=== PATIENT | male | born 1970 | race Caucasian/White ===

== ENCOUNTER → 2023-01-07 | Outpatient (CLI) | payer OTHER ==
[2023-01-07 15:06] LABS: African American GFR (CKD) >90 (>60 ml/min/1.73 sqM); Blood Urea Nitrogen 6 mg/dL (9-20); Non-African American GFR(CKD) >90 (>60 ml/min/1.73 sqM)
--- NOTE | 2023-01-07 16:56 | CT ---
EXAMINATION TYPE: CT ChestAbdPelvis w con CT DLP: 619.3 mGycm, Automated exposure control for dose reduction was used. DATE OF EXAM: 01/07/2023 4:24 PM COMPARISON: CT abdomen pelvis 10/20/2022, CT chest abdomen pelvis 08/20/2022. CLINICAL INDICATION:Male, 52 years old with history of C18.5; PHH, colon CA, f/u Technique: Multiple axial images of the chest, abdomen, and pelvis were obtained following the intrav enous administration of 100 mL Isovue-300. Oral contrast was administered. Two-dimensional coronal an d sagittal reconstructions were obtained. Findings: CHEST: LUNGS/ PLEURA: No pleural effusion, pneumothorax or focal consolidation. Stable 2 mm nodule within th e lateral aspect of the right lung apex. No new or enlarging pulmonary nodules. AIRWAY: Patent and unremarkable.. HEART: Size within normal limits. No pericardial effusion. MEDIASTINUM: No gross evidence of adenopathy. VASCULATURE: No aortic aneurysm. Right chest wall Mediport catheter with distal tip terminating at t he superior cavoatrial junction. MUSCULOSKELETAL: No acute osseous abnormalities. No aggressive osseous lesions. SOFT TISSUES/LYMPH NODES: Unremarkable. LOWER NECK: No significant findings. ABDOMEN: ABDOMEN LIVER: Multiple heterogenous hypodense partially calcified lesions within the liver are again demonst rated. These appear marginally decreased in size from prior examination. GALLBLADDER AND BILE DUCTS: Appears surgically absent. PANCREAS: Unremarkable. SPLEEN: Enlarged measuring 16.2 cm in CC dimension. ADRENAL GLANDS: Unremarkable. KIDNEYS AND URETERS: No evidence of hydronephrosis or renal calculus. The kidneys enhance symmetrical ly. PELVIS BLADDER: Under distended with circumferential wall thickening. REPRODUCTIVE: Prostate is enlarged in size measuring 5.6 cm in transverse dimension. This indents upo n the urinary bladder base. Bilateral hydroceles. ABDOMEN & PELVIS STOMACH AND BOWEL: Small hiatal hernia, duodenum is unremarkable. Enteric contrast reaches the transv erse colon. The fat planes around the sigmoid colon and rectum appear intact. No evidence of bowel ob struction. PERITONEUM: No evidence of pneumoperitoneum or free fluid. VASCULATURE: No evidence of aortic aneurysm. MUSCULOSKELETAL: No acute osseous abnormalities. No aggressive osseous lesion. Degenerative disc thompson ges at L4-L5. LYMPH NODES: No gross evidence for lymphadenopathy. SOFT TISSUE/ABDOMINAL WALL: Large anterior abdominal parastomal hernia containing trace amount of flu id or soft tissue nodularity. Large anterior abdominal wall hernia containing loop of transverse colo n redemonstrated. Initial epigastric ventral wall hernia containing small amount of fluid. IMPRESSION: 1. No evidence for metastatic disease within the chest. 2. Multiple metastatic hypodense lesions within the liver with calcification consistent with metasta tic disease. These are marginally decreased in size from prior examination. 3. Large anterior abdominal wall ostomy hernia. No evidence for obstruction. 4. Splenomegaly. 5. Circumferential wall thickening of the urinary bladder which may be due to under distention versu s cystitis. Correlate with urinalysis.
== END | disposition home or self-care (01) ==
LOC: RADCTMAIN 14:27
PROVIDERS: ATTEND Internal Medicine Hematology & Oncology
DX: C18.5 Malignant neoplasm of splenic flexure (principal); K76.9 Liver disease, unspecified; R16.1 Splenomegaly, not elsewhere classified; N32.89 Other specified disorders of bladder
CPT/HCPCS: 82565; 84520; 71260; 74177; 36415; Q9967

== ENCOUNTER → 2023-04-05 | Outpatient (CLI) | payer OTHER ==
[2023-04-05 13:28] LABS: African American GFR (CKD) >90 (>60 ml/min/1.73 sqM); Blood Urea Nitrogen 14 mg/dL (9-20); Non-African American GFR(CKD) >90 (>60 ml/min/1.73 sqM)
--- NOTE | 2023-04-06 07:48 | CT ---
EXAMINATION TYPE: CT ChestAbdPelvis w con CT DLP: 1043.2 mGycm, Automated exposure control for dose reduction was used. DATE OF EXAM: 04/05/2023 3:02 PM COMPARISON: CT chest abdomen and pelvis 01/07/2023, 10/20/2022 CLINICAL INDICATION:Male, 52 years old with history of C18.5 MALIGNANT NEOPLASM OF SPLENIC FLEXURE; P HH, h/o colon CA, f/u Technique: Multiple axial images of the chest, abdomen, and pelvis were obtained following the intrav enous administration of 100 mL Isovue-300. Oral contrast was administered. Two-dimensional coronal an d sagittal reconstructions were obtained. Findings: CHEST: LUNGS/ PLEURA: No pleural effusion, pneumothorax or focal consolidation. Stable 2 mm nodule within th e lateral aspect of the right lung apex. No new or enlarging pulmonary nodules. AIRWAY: Patent and unremarkable.. HEART: Size within normal limits. No pericardial effusion. MEDIASTINUM: No gross evidence of adenopathy. VASCULATURE: No aortic aneurysm. Right chest wall Mediport catheter with distal tip terminating at t he superior cavoatrial junction. MUSCULOSKELETAL: No acute osseous abnormalities. No aggressive osseous lesions. SOFT TISSUES/LYMPH NODES: Unremarkable. LOWER NECK: No significant findings. ABDOMEN: ABDOMEN LIVER: Multiple heterogenous hypodense partially calcified lesions within the liver are again demonst rated. These are stable from prior examination. No new definitive lesions from prior examination. GALLBLADDER AND BILE DUCTS: Appears surgically absent. PANCREAS: Unremarkable. SPLEEN: Enlarged measuring 16.1 cm in CC dimension. ADRENAL GLANDS: Unremarkable. KIDNEYS AND URETERS: No evidence of hydronephrosis or renal calculus. The kidneys enhance symmetrical ly. Contrast is demonstrated within both collecting systems on the delayed phase. PELVIS BLADDER: Unremarkable REPRODUCTIVE: Prostate is enlarged in size measuring 5.7 cm in transverse dimension. This indents upo n the urinary bladder base. Bilateral hydroceles. ABDOMEN & PELVIS STOMACH AND BOWEL: Small hiatal hernia, duodenum is unremarkable. Enteric contrast reaches the small bowel. The fat planes around the sigmoid colon and rectum appear intact. No evidence of bowel obstruc tion. Moderate amount of stool is present throughout the colon. PERITONEUM: No evidence of pneumoperitoneum or free fluid. Ending within the anterior mesentery likel y related to recent postsurgical change. VASCULATURE: No evidence of aortic aneurysm. MUSCULOSKELETAL: No acute osseous abnormalities. No aggressive osseous lesion. Degenerative disc thompson ges at L4-L5. LYMPH NODES: No gross evidence for lymphadenopathy. SOFT TISSUE/ABDOMINAL WALL: Post surgical change from treatment of previously seen anterior abdominal wall hernia. Trace stranding in this region. Similar epigastric ventral wall hernia containing small amount of fluid. Small bilateral inguinal hernias with right greater than left. These both contain f at with the right containing some trace ascites. IMPRESSION: 1. No evidence for metastatic disease within the chest. 2. Multiple metastatic hypodense lesions within the liver with calcification consistent with metasta tic disease. These are stable from prior exam. No new definitive lesions. 3. Postsurgical changes from abdominal wall hernia repair. 4. Splenomegaly unchanged.
== END | disposition home or self-care (01) ==
LOC: RADCTMAIN 12:58
PROVIDERS: ATTEND Internal Medicine Hematology & Oncology
DX: C78.7 Secondary malignant neoplasm of liver and intrahepatic bile duct (principal); C18.5 Malignant neoplasm of splenic flexure; F32.A Depression, unspecified; R16.1 Splenomegaly, not elsewhere classified; R51.9 Headache, unspecified; Z98.890 Other specified postprocedural states
CPT/HCPCS: 82565; 84520; 71260; 74177; 36415; Q9967

== ENCOUNTER → 2023-10-28 | Outpatient (CLI) | payer OTHER ==
[2023-10-28 12:56] LABS: African American GFR (CKD) >90 (>60 ml/min/1.73 sqM); Blood Urea Nitrogen 8 mg/dL (9-20); Non-African American GFR(CKD) >90 (>60 ml/min/1.73 sqM)
--- NOTE | 2023-10-28 15:16 | CT ---
EXAMINATION TYPE: CT ChestAbdPelvis w con DATE OF EXAM: 10/28/2023 COMPARISON: 04/05/2023 HISTORY: colon cancer CT DLP: 1811 mGycm Automated exposure control for dose reduction was used. CONTRAST: CT scan of the chest, abdomen and pelvis is performed with Oral Contrast and with IV Contrast, patien t injected with 100 mL of Isovue 300. EXAMINATION TYPE: CT ChestAbdPelvis w con DATE OF EXAM: 10/28/2023 COMPARISON: 04/05/2023 HISTORY: colon cancer CT DLP: 1811 mGycm Automated exposure control for dose reduction was used. CONTRAST: CT scan of the chest, abdomen and pelvis is performed with Oral Contrast and with IV Contrast, patien t injected with 100 mL of Isovue 300. FINDINGS: CT chest: There is no suspicious lung mass or nodule. There is no abnormal airspace/consolidative density or abnormal interstitial density. There is no pleural effusion, pleural thickening or pneumothorax. The great vessels and chest are normal there is no mediastinal, hilar or axillary adenopathy. No focal osseous lesions are seen. CT abdomen and pelvis: There is surgical absence of gallbladder. There is no biliary ductal dilatation. There are multiple ill-defined hypodensities with calcification scattered throughout the liver consis tent with treated metastasis. There is been no significant interval change in number or size compared to the prior study. There is no focal mass or organomegaly involving the pancreas, spleen or adrenal glands. There is no solid renal mass or hydronephrosis. There is no retroperitoneal adenopathy or hemorrhage in the caliber of the abdominal aorta is normal. The bowel loops are normal in caliber and there is no dilatation or obstruction. No inflammatory thompson ges identified in the bowel wall and mesentery. There is no free intracranial air or fluid. There are anastomotic sutures in the splenic flexure of colon. There is no pelvic mass or adenopathy. There is no free fluid within the pelvis. No focal osseous lesions are seen. Soft tissue the abdomen and pelvis are normal. IMPRESSION: 1. No evidence of metastatic disease in the chest. No interval change compared to previous. 2. stable hepatic metastasis. 3. No new lesions within the abdomen or pelvis. 4. no osseous metastasis in the chest, abdomen or pelvis.
== END | disposition home or self-care (01) ==
LOC: RADPROMAIN 11:12
PROVIDERS: ATTEND Internal Medicine Hematology & Oncology
DX: C78.7 Secondary malignant neoplasm of liver and intrahepatic bile duct (principal); C18.5 Malignant neoplasm of splenic flexure; F32.A Depression, unspecified; R51.9 Headache, unspecified; Z71.3 Dietary counseling and surveillance; Z90.49 Acquired absence of other specified parts of digestive tract
CPT/HCPCS: 82565; 84520; 71260; 74177; 36415; Q9967

== ENCOUNTER → 2024-01-28 | Outpatient (CLI) | payer OTHER ==
[2024-01-28 11:52] LABS: African American GFR (CKD) >90 (>60 ml/min/1.73 sqM); Blood Urea Nitrogen 15 mg/dL (9-20); Non-African American GFR(CKD) >90 (>60 ml/min/1.73 sqM)
--- NOTE | 2024-01-30 17:03 | CT ---
EXAMINATION TYPE: CT ChestAbdPelvis w con CT DLP: 1926 mGycm, Automated exposure control for dose reduction was used. DATE OF EXAM: 01/28/2024 1:04 PM COMPARISON: 10/28/2023. CLINICAL INDICATION:Male, 53 years old with history of K83.8 OTHER SPECIFIED DISEASES OF BILIARY TRAC T; PHH, colon ca f/u Technique: CT ChestAbdPelvis w con; Multiple axial images were obtained. Two-dimensional coronal and sagittal reconstructions were obtained. Contrast used:100ml mL of Isovue 300 with IV Contrast, Oral contrast used: with Oral Contrast Findings: CHEST: LUNGS/ PLEURA: No pleural effusion, pneumothorax or focal consolidation. Stable 2 mm nodule within th e lateral aspect of the right lung apex. No new or enlarging pulmonary nodules. AIRWAY: Patent and unremarkable.. HEART: Size within normal limits. No pericardial effusion. MEDIASTINUM: No gross evidence of adenopathy. VASCULATURE: No aortic aneurysm. Right chest wall [id number] catheter with distal tip terminating at the superior cavoatrial junction. MUSCULOSKELETAL: No acute osseous abnormalities. No aggressive osseous lesions. SOFT TISSUES/LYMPH NODES: Unremarkable. LOWER NECK: No significant findings. ABDOMEN: ABDOMEN LIVER: Similar heterogenous partially calcified lesions within the liver are again demonstrated. Thes e are stable from prior examination. These lesions may be mildly increased in size including the righ t hepatic dome series 3 image 53 lesion now measuring 49 x 41 previously 41 x 34r increased soft tiss ue in the right lateral inferior aspect of another lesion series 3 image 64 when comparing to prior a nd more medially near the IVC series 3 image 65 measuring 8 mm previously 13. As well as a lesion on series 3 image 72 measuring 18 mm previously 15 mm. GALLBLADDER AND BILE DUCTS: Appears surgically absent. PANCREAS: Unremarkable. SPLEEN: Enlarged measuring 16.1 cm in CC dimension. ADRENAL GLANDS: Unremarkable. KIDNEYS AND URETERS: No evidence of hydronephrosis or renal calculus. The kidneys enhance symmetrical ly. Contrast is demonstrated within both collecting systems on the delayed phase. PELVIS BLADDER: Unremarkable REPRODUCTIVE: Prostate is enlarged in size measuring 5.7 cm in transverse dimension. This indents upo n the urinary bladder base. Bilateral hydroceles. ABDOMEN & PELVIS STOMACH AND BOWEL: Small hiatal hernia, duodenum is unremarkable. Enteric contrast reaches the small bowel. The fat planes around the sigmoid colon and rectum appear intact. No evidence of bowel obstruc tion. Moderate amount of stool is present throughout the colon. PERITONEUM: No evidence of pneumoperitoneum or free fluid. Ending within the anterior mesentery likel y related to recent postsurgical change. VASCULATURE: No evidence of aortic aneurysm. MUSCULOSKELETAL: No acute osseous abnormalities. No aggressive osseous lesion. Degenerative disc thompson ges at L4-L5. LYMPH NODES: No gross evidence for lymphadenopathy. SOFT TISSUE/ABDOMINAL WALL: Post surgical change from treatment of previously seen anterior abdominal wall hernia. Trace stranding in this region. Similar epigastric ventral wall hernia containing small amount of fluid. Small bilateral inguinal hernias with right greater than left. These both contain f at with the right containing some trace ascites. IMPRESSION: 1. Increasing low-density areas within the liver concerning for progression of disease. 2. No evidence for metastatic disease within the chest. 3. Postsurgical changes from abdominal wall hernia repair. 4. Splenomegaly unchanged. .
== END | disposition home or self-care (01) ==
LOC: RADCTMAIN 10:43
PROVIDERS: ATTEND Internal Medicine Hematology & Oncology
DX: C78.7 Secondary malignant neoplasm of liver and intrahepatic bile duct (principal); C18.5 Malignant neoplasm of splenic flexure; R16.1 Splenomegaly, not elsewhere classified; Z98.890 Other specified postprocedural states; F32.A Depression, unspecified; R51.9 Headache, unspecified
CPT/HCPCS: 82565; 84520; 71260; 74177; 36415; Q9967

== ENCOUNTER 2024-05-12 18:20 | Emergency (ER) | payer OTHER ==
--- NOTE | 2024-05-12 18:49 | ED ---
Abdominal Pain HPI - General Source: patient, family, RN notes reviewed Mode of arrival: ambulatory Limitations: no limitations <Patricia Moreno - Last Filed: 05/12/24 18:48> - General Source: patient, family, RN notes reviewed, old records reviewed <Camilo Mckinnon - Last Filed: 05/13/24 02:35> - General Chief Complaint: Abdominal Pain Stated Complaint: vomitting Time Seen by Provider: 05/12/24 18:48 - History of Present Illness Initial Comments: Quick note: 53-year-old male presenting to the ER with a chief complaint of nausea and vomiting. Patient has known stage IV colon cancer and is currently on a Keytruda through clinical trial. He states that the past 24 hours he has been having persistent nausea with generalized abdominal pain. He does have a known hernia from previous surgeries. He states the area feels harder than normal. He also is reporting diarrhea. (Patricia Moreno) Patient is a 53-year-old male who presents emergency department complaining of abdominal pain. Originally seen as a work note. I evaluated patient after workup was completed. He was placed in room 2. Patient has a history of colon cancer currently on Keytruda through a clinical trial. For the last day he has been having generalized abdominal cramping with nausea, vomiting. Prior abdominal surgeries. States he is still passing gas. Family members have had some similar symptoms that are just not as persistent. Denies fevers. Denies chest pain, shortness of breath, cough. Denies any urinary complaints. No other acute complaints at this time. Presents for further evaluation. (Camilo Mckinnon) - Related Data Home Medications Medication Instructions Recorded Confirmed Magnesium(Unknown Dose) 1 tab PO DAILY 10/19/22 01/27/24 Ondansetron Odt [Zofran ODT] 8 mg PO Q8HR PRN 10/19/22 01/27/24 Potassium(Unknown Dose) 1 tab PO DAILY 10/19/22 01/27/24 Vitamin B Complex [B-Complex] 1 tab PO DAILY 10/19/22 01/27/24 Vitamin D(Unknown Dose) 1 tab PO DAILY 10/19/22 01/27/24 Doxycycline [Vibramycin] 1 tab PO BID 07/15/23 01/27/24 Previous Rx's Medication Instructions Recorded Meloxicam [Mobic] 15 mg PO DAILY 30 Days #30 tab 02/15/23 Nystatin 100,000 Unit/ml Susp 3,000,000 unit PO TID 30 Days #400 10/24/22 [Mycostatin Oral Susp] ml cefUROXime axetiL [Ceftin] 500 mg PO BID 10 Days #20 tab 10/24/22 Allergies Allergy/AdvReac Type Severity Reaction Status Date / Time morphine AdvReac Nausea & Verified 05/12/24 18:47 Vomiting Review of Systems ROS Other: All systems not noted in ROS Statement are negative. <Patricia Moreno - Last Filed: 05/12/24 18:48> ROS Other: All systems not noted in ROS Statement are negative. <Camilo Mckinnon - Last Filed: 05/13/24 02:35> ROS Statement: Those systems with pertinent positive or pertinent negative responses have been documented in the HPI. Review of Systems: CONST: Denies fever EYES: Denies blurry vision ENT: Denies nasal congestion C/V: Denies Chest pain RESP: Denies shortness of breath GI: Denies current abdominal cramping or pain. States it comes in waves. : Denies dysuria SKIN: Denies rash. MSK: Denies joint pain. NEURO: Denies headache (Camilo Mckinnon) Past Medical History Past Medical History: Cancer Additional Past Medical History / Comment(s): Colon cancer currently on Chemo, hernia History of Any Multi-Drug Resistant Organisms: None Reported Past Surgical History: Bowel Resection Additional Past Surgical History / Comment(s): Colostomy Past Anesthesia/Blood Transfusion Reactions: No Reported Reaction Past Psychological History: No Psychological Hx Reported Smoking Status: Former smoker Past Alcohol Use History: None Reported Past Drug Use History: None Reported <Patricia Mroeno - Last Filed: 05/12/24 18:48> General Exam Limitations: no limitations <Patricia Moreno - Last Filed: 05/12/24 18:48> <Camilo Mckinnon - Last Filed: 05/13/24 02:35> - General Exam Comments Initial Comments: Visual Physical Exam Vital signs reviewed General: Well-appearing, nontoxic, no acute distress. Head: Normocephalic, atraumatic Eyes: PERRLA, EOMI ENT: Airway patent Chest: Nonlabored breathing Skin: No visual rash, normal skin tone Neuro: Alert and oriented 3 Musculoskeletal: No gross abnormalities (Patricia Moreno) General: Appears in no acute distress. HEAD: Normal with no signs of head trauma. EYES: PERRLA, EOMI, conjunctiva normal, no discharge. ENT: Hearing grossly intact, normal oropharynx. RESPIRATORY: Clear breath sounds bilaterally. No wheezes, rales, or rhonchi. C/V: Regular rate and rhythm. S1 and S2 auscultated, no edema, peripheral pulses 2+ and intact throughout ABD: Abd is soft, nontender, nondistended. No significant tenderness to palpation at this time. Patient does have a easily reducible ventral hernia. EXT: Normal range of motion, no obvious deformity SKIN: No rashes or lesions observed on exposed skin. NEURO: Alert and oriented x 4. (Camilo Mckinnon) Course Vital Signs 05/12/24 05/12/24 05/13/24 18:44 23:00 01:00 Temperature 97.6 F Pulse Rate 92 Respiratory 18 18 Rate Blood Pressure 128/86 142/92 122/86 O2 Sat by Pulse 98 97 98 Oximetry 05/13/24 02:20 Temperature 97.8 F Pulse Rate 64 Respiratory 16 Rate Blood Pressure 122/84 O2 Sat by Pulse 98 Oximetry Medical Decision Making <Patricia Moreno - Last Filed: 05/12/24 18:48> - Lab Data Result diagrams: 05/12/24 19:41 05/12/24 19:41 <Camilo Mckinnon - Last Filed: 05/13/24 02:35> - Medical Decision Making I performed the quick note portion of this chart. Electronically signed by Patricia Moreno PA-C (Patricia Moreno) Was pt. sent in by a medical professional or institution ([facility], BODY ARTIST, urgent care, hospital, or residential...) When possible be specific @ -No Did you speak to anyone other than the patient for history (EMS, parent, family, police, friend...)? What history was obtained from this source @ -No Did you review nursing and triage notes (agree or disagree)? Why? @ -I reviewed and agree with nursing and triage notes Were old charts reviewed (outside hosp., previous admission, EMS record, old EKG, old radiological studies, urgent care reports/EKG's, residential records)? Report findings @ -No old charts were reviewed Differential Diagnosis (chest pain, altered mental status, abdominal pain women, abdominal pain men, vaginal bleeding, weakness, fever, dyspnea, syncope, headache, dizziness, GI bleed, back pain, seizure, CVA, palpatations, mental health, musculoskeletal)? @ -Differential Abdominal Pain Men: Appendicitis, cholecystitis, diverticulosis, ischemic bowel, pancreatitis, hepatitis, UTI, gastroenteritis, AAA, incarcerated hernia, bowel obstruction, constipation, inflammatory bowel, hepatitis, peptic ulcer disease, splenic infarction, perforated viscus, testicular torsion, this is not meant to be an all-inclusive list EKG interpreted by me (3pts min.). @ -As above X-rays interpreted by me (1pt min.). @ -KUB x-ray negative for any obvious acute intra-abdominal process. CT interpreted by me (1pt min.). @ -CT abdomen pelvis revealed the ventral hernia with bowel loops contained within. They recommend correlate clinically for small bowel obstruction or incarcerated hernia. It is easily reducible. I have low concern for small bowel obstruction at this time. Also nonobstructing bilateral renal stones. U/S interpreted by me (1pt. min.). @ -None done What testing was considered but not performed or refused? (CT, X-rays, U/S, labs)? Why? @ -None What meds were considered but not given or refused? Why? @ -None Did you discuss the management of the patient with other professionals ([place] i.e. , PA, BODY ARTIST, lab, RT, psych nurse, social human services assistants, analytical data miner, teacher, motor equipment commanding officer, vocational case manager)? Give summary @ -No Was smoking cessation discussed for >3mins.? @ -No Was critical care preformed (if so, how long)? @ -No Were there social determinants of health that impacted care today? How? (Homelessness, low income, unemployed, alcoholism, drug addiction, transportation, low edu. Level, literacy, decrease access to med. care, [facility], rehab)? @ -No Was there de-escalation of care discussed even if they declined (Discuss DNR or withdrawal of care, Hospice)? DNR status @ -No What co-morbidities impacted this encounter? (DM, HTN, Smoking, COPD, CAD, Cancer, CVA, ARF, Chemo, Hep., AIDS, mental health diagnosis, sleep apnea, morbid obesity)? @ -Colon cancer Was patient admitted / discharged? Hospital course, mention meds given and route, prescriptions, significant lab abnormalities, going to OR and other pertinent info. @ -Based on the patient's presentation and physical exam, presents emergency department complaining of abdominal pain with nausea and vomiting. Does have sick contacts at home. Still passing gas. Still having bowel movements. Abdominal labs were already obtained by the time evaluate the patient. Remarkable for mild leukocytosis of 11.2. Remainder the abdominal labs unremarkable. KUB x-ray also obtained revealed no obvious acute intra-abdominal process. When I evaluated the patient, he was in the waiting room. He will be placed in room and will obtain CT imaging with the patient's past medical history. He will be symptomatically treated with IV fluids, analgesia medications, Zofran, Protonix. Patient in agreement with this plan. Vital signs within acceptable limits. After long delay, CT returned remarkable for ventral hernia containing loops of bowel. Correlate clinically for small bowel obstruction or incarcerated hernia. I discussed with the patient. He is asymptomatic at this time. Ventral hernia is easily reducible still. I believe it is safe for him to be discharged home at this time. I am not concerned for small bowel obstruction at this time as clinically does not present as 1. Patient was in agreement this plan. Recommended follow-up with his PCP this week. Patient has follow-up tomorrow. I will provide the patient with a prescription for starter pack of Zofran. I instructed the patient to follow up with their PCP in the next 1-3 days. That. I explained that the patient should return to the emergency department if they experience any worsening symptoms. Strict return precautions were discussed with the patient. The patient expressed understanding of these instructions. I answered all questions that the patient had. The patient was discharged home in good condition with their prescriptions and follow up information. Undiagnosed new problem with uncertain prognosis? @ -No Drug Therapy requiring intensive monitoring for toxicity (Heparin, Nitro, Insulin, Cardizem)? @ -No Were any procedures done? @ -No Diagnosis/symptom? @ -Abdominal pain of unknown etiology, vomiting, hernia easily reducible Acute, or Chronic, or Acute on Chronic? @ -Acute Uncomplicated (without systemic symptoms) or Complicated (systemic symptoms)? @ -Uncomplicated Side effects of treatment? @ -No Exacerbation, Progression, or Severe Exacerbation? @ -No Poses a threat to life or bodily function? How? (Chest pain, [place], [place], pneumonia, PE, COPD, DKA, ARF, appy, cholecystitis, CVA, Diverticulitis, Homicidal, Suicidal, threat to staff... and all critical care pts) @ -Unlikely (Camilo Mckinnon) - Lab Data Lab Results 05/12/24 05/12/24 05/12/24 Range/Units 19:41 19:41 19:41 WBC 11.2 H (3.8-10.6) k/uL RBC 5.15 (4.30-5.90) m/uL Hgb 14.1 (13.0-17.5) gm/dL Hct 42.3 (39.0-53.0) % MCV 82.1 (80.0-100.0) fL MCH 27.4 (25.0-35.0) pg MCHC 33.3 (31.0-37.0) g/dL RDW 16.2 H (11.5-15.5) % Plt Count 276 (150-450) k/uL MPV 6.9 Neutrophils % 85 % Lymphocytes % 7 % Monocytes % 6 % Eosinophils % 1 % Basophils % 0 % Neutrophils # 9.5 H (1.3-7.7) k/uL Lymphocytes # 0.8 L (1.0-4.8) k/uL Monocytes # 0.7 (0-1.0) k/uL Eosinophils # 0.1 (0-0.7) k/uL Basophils # 0.0 (0-0.2) k/uL Anisocytosis Slight Sodium 135 L (137-145) mmol/L Potassium 4.6 (3.5-5.1) mmol/L Chloride 102 (98-107) mmol/L Carbon Dioxide 19 L (22-30) mmol/L Anion Gap 14 mmol/L BUN 14 (9-20) mg/dL Creatinine 0.54 L (0.66-1.25) mg/dL Est GFR (CKD-EPI)AfAm >90 (>60 ml/min/1.73 sqM) Est GFR (CKD-EPI)NonAf >90 (>60 ml/min/1.73 sqM) Glucose 135 H (74-99) mg/dL Plasma Lactic Acid Humberto 1.2 (0.7-2.0) mmol/L Calcium 10.1 (8.4-10.2) mg/dL Total Bilirubin 1.6 H (0.2-1.3) mg/dL AST 76 H (17-59) U/L ALT 48 (4-49) U/L Alkaline Phosphatase 318 H (38-126) U/L Total Protein 8.5 H (6.3-8.2) g/dL Albumin 4.9 (3.5-5.0) g/dL Amylase 60 (30-110) U/L Lipase 114 (23-300) U/L Urine Color Urine Appearance (Clear) Urine pH (5.0-8.0) Ur Specific [place] (1.001-1.035) Urine Protein (Negative) Urine Glucose (UA) (Negative) Urine Ketones (Negative) Urine Blood (Negative) Urine Nitrite (Negative) Urine Bilirubin (Negative) Urine Urobilinogen (<2.0) mg/dL Ur Leukocyte Esterase (Negative) Urine RBC (0-5) /hpf Urine WBC (0-5) /hpf Urine Mucus (None) /hpf Influenza Type A (PCR) (Not Detectd) Influenza Type B (PCR) (Not Detectd) RSV (PCR) (Not Detectd) SARS-CoV-2 (PCR) (Not Detectd) 05/12/24 05/12/24 Range/Units 20:04 22:04 WBC (3.8-10.6) k/uL RBC (4.30-5.90) m/uL Hgb (13.0-17.5) gm/dL Hct (39.0-53.0) % MCV (80.0-100.0) fL MCH (25.0-35.0) pg MCHC (31.0-37.0) g/dL RDW (11.5-15.5) % Plt Count (150-450) k/uL MPV Neutrophils % % Lymphocytes % % Monocytes % % Eosinophils % % Basophils % % Neutrophils # (1.3-7.7) k/uL Lymphocytes # (1.0-4.8) k/uL Monocytes # (0-1.0) k/uL Eosinophils # (0-0.7) k/uL Basophils # (0-0.2) k/uL Anisocytosis Sodium (137-145) mmol/L Potassium (3.5-5.1) mmol/L Chloride (98-107) mmol/L Carbon Dioxide (22-30) mmol/L Anion Gap mmol/L BUN (9-20) mg/dL Creatinine (0.66-1.25) mg/dL Est GFR (CKD-EPI)AfAm (>60 ml/min/1.73 sqM) Est GFR (CKD-EPI)NonAf (>60 ml/min/1.73 sqM) Glucose (74-99) mg/dL Plasma Lactic Acid Humberto (0.7-2.0) mmol/L Calcium (8.4-10.2) mg/dL Total Bilirubin (0.2-1.3) mg/dL AST (17-59) U/L ALT (4-49) U/L Alkaline Phosphatase (38-126) U/L Total Protein (6.3-8.2) g/dL Albumin (3.5-5.0) g/dL Amylase (30-110) U/L Lipase (23-300) U/L Urine Color Yellow Urine Appearance Clear (Clear) Urine pH 6.0 (5.0-8.0) Ur Specific [place] 1.032 (1.001-1.035) Urine Protein 2+ H (Negative) Urine Glucose (UA) Negative (Negative) Urine Ketones 2+ H (Negative) Urine Blood Negative (Negative) Urine Nitrite Negative (Negative) Urine Bilirubin Negative (Negative) Urine Urobilinogen 3.0 (<2.0) mg/dL Ur Leukocyte Esterase Negative (Negative) Urine RBC 2 (0-5) /hpf Urine WBC 2 (0-5) /hpf Urine Mucus Many H (None) /hpf Influenza Type A (PCR) Not Detected (Not Detectd) Influenza Type B (PCR) Not Detected (Not Detectd) RSV (PCR) Not Detected (Not Detectd) SARS-CoV-2 (PCR) Not Detected (Not Detectd) Disposition <Patricia Moreno - Last Filed: 05/12/24 18:48> Is patient prescribed a controlled substance at d/c from ED?: No Time of Disposition: 01:49 <Camilo Mckinnon - Last Filed: 05/13/24 02:35> Clinical Impression: Nausea and vomiting, Hernia, Abdominal pain of unknown etiology Disposition: HOME SELF-CARE Condition: Good Instructions (If sedation given, give patient instructions): Abdominal Pain (ED), Ventral Hernia (ED) Referrals: Kim Diaz MD [Primary Care Provider] - 1-2 days
--- NOTE | 2024-05-12 19:51 | XR ---
EXAMINATION TYPE: XR KUB DATE OF EXAM: 05/12/2024 7:17 PM CLINICAL INDICATION: Male, 53 years old with history of abdominal pain; [facility] COMPARISON: None. TECHNIQUE: One radiographic view of the abdomen was obtained. FINDINGS: Single loop of small bowel in the left upper quadrant with gaseous distention. The bowel ga s pattern is nonspecific without dilated loops of small or large bowel. . Fecal material and gas are demonstrated throughout the colon and rectum. There is no evidence for organomegaly or pneumoperitoneum. The osseous structures are intact. No ab normal calcifications are present. Multilevel degeneration changes of the spine. High density lesions scattered throughout the liver as seen on prior CT. IMPRESSION: Nonspecific bowel gas pattern without radiographic evidence for acute process.
[2024-05-12 19:55] LABS: Anisocytosis Slight; Basophils % (A) 0 %; Eosinophils # (A) 0.1 k/uL (0-0.7); Eosinophils % (A) 1 %; HCT 42.3 % (39.0-53.0); HGB 14.1 gm/dL (13.0-17.5); Lymphocytes # (A) 0.8 k/uL (1.0-4.8); Lymphocytes % (A) 7 %; MCH 27.4 pg (25.0-35.0); MCHC 33.3 g/dL (31.0-37.0); MCV 82.1 fL (80.0-100.0); Mean Platelet Volume 6.9; Monocytes # (A) 0.7 k/uL (0-1.0); Monocytes % (A) 6 %; Neutrophils # (A) 9.5 k/uL (1.3-7.7); Neutrophils % (A) 85 %; Platelet Count 276 k/uL (150-450); RBC 5.15 m/uL (4.30-5.90); RDW 16.2 % (11.5-15.5); WBC 11.2 k/uL (3.8-10.6)
[2024-05-12 20:09] LABS: ALT 48 U/L (4-49); AST 76 U/L (17-59); African American GFR (CKD) >90 (>60 ml/min/1.73 sqM); Albumin 4.9 g/dL (3.5-5.0); Alkaline Phosphatase 318 U/L (38-126); Amylase 60 U/L (30-110); Anion Gap 14 mmol/L; Blood Urea Nitrogen 14 mg/dL (9-20); Calcium 10.1 mg/dL (8.4-10.2); Carbon Dioxide 19 mmol/L (22-30); Chloride 102 mmol/L (98-107); Glucose 135 mg/dL (74-99); Lipase 114 U/L (23-300); Non-African American GFR(CKD) >90 (>60 ml/min/1.73 sqM); Potassium 4.6 mmol/L (3.5-5.1); Sodium 135 mmol/L (137-145); Total Bilirubin 1.6 mg/dL (0.2-1.3); Total Protein 8.5 g/dL (6.3-8.2)
[2024-05-12 20:53] LABS: Appearance,Urine Clear (Clear); Bilirubin,Urine Negative (Negative); Blood,Urine Negative (Negative); Color,Urine Yellow; Glucose,Urine (UA) Negative (Negative); Ketones,Urine 2+ (Negative); Leukocyte Esterase,Urine Negative (Negative); Mucus,Urine Many /hpf; Nitrite,Urine Negative (Negative); Protein,Urine 2+ (Negative); RBC,Urine 2 /hpf (0-5); Specific Gravity,Urine 1.032 (1.001-1.035); WBC,Urine 2 /hpf (0-5)
[2024-05-12] MEDS: SODIUM CHLORIDE 0.9% 1,000 ML IV STA (22:08)
[2024-05-12] MEDS: PANTOPRAZOLE 40 MG/10 ML VIAL IVP STA (22:10)
[2024-05-12] MEDS: KETOROLAC 15 MG/ML 1 ML VIAL IVP STA (22:13)
[2024-05-12] MEDS: ONDANSETRON 4 MG/2 ML VIAL IVP STA (22:15)
[2024-05-13] MEDS: SODIUM CHLORIDE 0.9% 1,000 ML IV STA (00:24)
--- NOTE | 2024-05-13 01:12 | CT ---
EXAM: CT Abdomen and Pelvis With Intravenous Contrast CLINICAL HISTORY: ITS.REASON CT Reason: abd pain, n/v. hx of cancer TECHNIQUE: Axial computed tomography images of the abdomen and pelvis with intravenous contrast. CTDI is 17.8 mGy and DLP is 938.9 mGy-cm. This CT exam was performed using one or more of the following dose reduction techniques: automated exposure control, adjustment of the mA and/or kV according to patient size, and/or use of iterative reconstruction technique. COMPARISON: CT abdomen and pelvis January 28, 2024. FINDINGS: Lung bases: Unremarkable. No mass. No consolidation. ABDOMEN: Liver: Multiple hepatic metastases. Correlate for primary malignancy. Gallbladder and bile ducts: Unremarkable. No calcified stones. No ductal dilation. Pancreas: Unremarkable. No mass. No ductal dilation. Spleen: Unremarkable. No splenomegaly. Adrenals: Unremarkable. No mass. Kidneys and ureters: Nonobstructing bilateral renal stones measuring approximately 2 mm in size. Stomach and bowel: Dilated small bowel in the pelvis measuring up to 3. 1 cm, consistent with bowel obstruction. Area of obstruction is in a ventral abdominal wall hernia on axial image 201. This may be manually reducible. The need for surgical evaluation should be determined clinically. No mucosal thickening. PELVIS: Appendix: No findings to suggest acute appendicitis. Bladder: Unremarkable. No mass. Reproductive: Unremarkable as visualized. ABDOMEN and PELVIS: Intraperitoneal space: Unremarkable. No free air. No significant fluid collection. Bones/joints: Degenerative changes of the spine. No acute fracture. No dislocation. Soft tissues: Bilateral inguinal hernias. Vasculature: Atherosclerotic changes of the aorta. No abdominal aortic aneurysm. Lymph nodes: Unremarkable. No enlarged lymph nodes. IMPRESSION: 1. Dilated small bowel in the pelvis measuring up to 3.1 cm, consistent with bowel obstruction. Area of obstruction is in a ventral abdominal wall hernia on axial image 201. This may be manually reducible. The need for surgical evaluation should be determined clinically. 2. Nonobstructing bilateral renal stones measuring approximately 2 mm in size.
[2024-05-13] MEDS: MORPHINE SULFATE 4 MG/ML SYRINGE IVP STA (01:34)
[2024-05-13] MEDS: ONDANSETRON 4 MG ODT STARTER PACK 2 TAB BTL PO STA (02:17)
[2024-05-13 02:25] VITALS: BP 122/84; PULSE 64; RESP 16; TEMP 97.8
== END 2024-05-13 02:22 | disposition home or self-care (01) ==
LOC: EC 18:20
DX: R11.10 Vomiting, unspecified
CPT/HCPCS: 36415; 74018; 74177; 80053; 81001; 82150; 83605; 83690; 85025; 87636; 96361; 96374; 96375; 99284

== ENCOUNTER → 2024-11-20 | Outpatient (CLI) | payer OTHER ==
[2024-11-20 11:42] LABS: African American GFR (CKD) >90 (>60 ml/min/1.73 sqM); Blood Urea Nitrogen 7 mg/dL (9-20); Non-African American GFR(CKD) >90 (>60 ml/min/1.73 sqM)
--- NOTE | 2024-11-20 13:39 | CT ---
EXAMINATION TYPE: CT abdomen pelvis w con CT DLP: 1440 mGycm, Automated exposure control for dose reduction was used. DATE OF EXAM: 11/20/2024 1:21 PM COMPARISON: Multiple CT chest abdomen pelvis with most recent 01/28/2024. CTA chest 10/26/2024 CLINICAL INDICATION:Male, 54 years old with history of Z03.89 obs for mets; Spleen Cancer, Obs for Me ts TECHNIQUE: Standard CT of the abdomen and pelvis following the administration of 100 cc of Isovue 3 00 IV contrast material and oral contrast. Coronal and sagittal reformats were performed. FINDINGS: LOWER CHEST: No significant findings. ABDOMEN LIVER: Redemonstration of multiple hypodense heterogenous lesions throughout the liver. Majority are in the right hepatic lobe. Difficult to measure due to the amount and confluent nature of these lesio ns. Some demonstrate calcification and some enhancement. These appear slightly smaller when compared to prior CT 05/12/2024. Exam occluded left hepatic lobe 3.2 cm lesion (series 3, image 23). Previously measured 5.4 cm. GALLBLADDER AND BILE DUCTS: The gallbladder is surgically absent. No biliary ductal dilatation. PANCREAS: Unremarkable. SPLEEN: Increasing size of 19.5 cm in CC dimension, previously 14.6 cm in 2023. No focal lesion ident ified. ADRENAL GLANDS: Unremarkable. KIDNEYS AND URETERS: No evidence of hydronephrosis. The kidneys enhance symmetrically. Nonobstructive right renal tumor calculus. No left renal calculi. Contrast is demonstrated within both renal collec ting systems and proximal ureters on delayed phase. PELVIS BLADDER: Unremarkable REPRODUCTIVE: Prostate is enlarged in size measuring 5.1 cm in transverse dimension. ABDOMEN & PELVIS STOMACH AND BOWEL: Small hiatal hernia, duodenum is unremarkable. Postsurgical changes with anastomos is in the left mid abdomen. Enteric contrast reaches the distal small bowel. No focal bowel wall thic kening or surrounding inflammatory changes. No evidence of bowel obstruction. PERITONEUM: No evidence of pneumoperitoneum or free fluid. VASCULATURE: No evidence of aortic aneurysm. The portal venous system is patent with a dilated appear ance of the splenic vein with collateral vessels in the left upper quadrant and extending into the re troperitoneal region. Few pelvic phleboliths. MUSCULOSKELETAL: No acute osseous abnormalities. No aggressive osseous lesion. Degenerative disc dise ase L4-L5. LYMPH NODES: No evidence for lymphadenopathy. SOFT TISSUE/ABDOMINAL WALL: Small fat filled left inguinal hernia. Slightly larger right inguinal her nat[place] containing fat and ascites. Ventral epigastric wall hernia containing ascites with measuring 3.0 x 6.1 cm. The defect measures approximately 7 mm. Additional smaller supraumbilical ventral hernia co ntaining ascites. IMPRESSION: 1. Increasing splenomegaly. 2. Redemonstration of heterogenous hypodense metastatic lesions throughout the liver with some demons trating calcification and enhancement. These appears slightly smaller from prior CT. 3. Findings suggesting portal hypertension with dilated portal venous system and collateral vessels. 4. Bilateral inguinal hernias with multiple ventral wall hernias containing ascites. 5. Postsurgical changes of the bowel. [facility], , 11/20/2024 1:37 PM
== END | disposition home or self-care (01) ==
LOC: RADCTMAIN 10:53
PROVIDERS: ATTEND Internal Medicine Hematology & Oncology
DX: Z03.89 Encounter for observation for other suspected diseases and conditions ruled out (principal); C18.5 Malignant neoplasm of splenic flexure; C78.7 Secondary malignant neoplasm of liver and intrahepatic bile duct; R16.1 Splenomegaly, not elsewhere classified; K40.20 Bilateral inguinal hernia, without obstruction or gangrene, not specified as recurrent; R18.8 Other ascites; Z98.890 Other specified postprocedural states
CPT/HCPCS: 82565; 84520; 74177; 36415; Q9967

== ENCOUNTER 2025-03-30 12:34 | Emergency (ER) | payer OTHER ==
[2025-03-30 12:48] VITALS: TEMP 98
--- NOTE | 2025-03-30 13:11 | ED ---
Male Urogenital HPI - General Chief complaint: Urogenital Stated complaint: Hematuria Time Seen by Provider: 03/30/25 13:10 Source: patient, RN notes reviewed Mode of arrival: ambulatory Limitations: no limitations - History of Present Illness Initial comments: 54-year-old male presented the ER for evaluation hematuria. Patient reports he has known stage IV colon cancer with metastasis. He states he recently finished up chemotherapy approximately 1 week ago. He follows up with Dr. Garcia. Patient reports upon waking up from a nap he went to the bathroom to urinate. He states he was urinating bright red blood. He denies any dysuria, increased urinary frequency or blood thinner use. Patient also notes upon waking up from his nap dried blood to bilateral inner thighs. He believes this may be due to leaking of urine. He denies any abdominal pain, back or flank pain, change in urinary stream. He denies any previous or reoccurring bouts of hematuria since initial incident. Patient denies any abnormal penile discharge, scrotal pain or swelli ng. Patient notes he did recently undergo a right femoral angiogram at [facility] for evaluation of liver vascularity, Y90. He denies any pain at insertion site, bleeding, leakage, bulging. He denies any fevers, chills, nausea, vomiting, constipation/diarrhea, dizziness, lightheadedness or other complaints. No history of kidney stones - Related Data Home Medications Medication Instructions Recorded Confirmed No Known Home Medications 03/30/25 03/30/25 Allergies Allergy/AdvReac Type Severity Reaction Status Date / Time morphine AdvReac Nausea & Verified 03/30/25 13:42 Vomiting Review of Systems ROS Statement: Those systems with pertinent positive or pertinent negative responses have been documented in the HPI. ROS Other: All systems not noted in ROS Statement are negative. Past Medical History Past Medical History: Cancer Additional Past Medical History / Comment(s): Colon cancer currently on Chemo History of Any Multi-Drug Resistant Organisms: None Reported Past Surgical History: Bowel Resection Additional Past Surgical History / Comment(s): Colostomy Past Anesthesia/Blood Transfusion Reactions: No Reported Reaction Past Psychological History: No Psychological Hx Reported Smoking Status: Never smoker Past Alcohol Use History: None Reported Past Drug Use History: None Reported General Exam Limitations: no limitations General appearance: alert, in no apparent distress Respiratory exam: Present: normal lung sounds bilaterally. Absent: respiratory distress, wheezes, rales, rhonchi, stridor Cardiovascular Exam: Present: regular rate, normal rhythm, normal heart sounds. Absent: systolic murmur, diastolic murmur, rubs, gallop, clicks GI/Abdominal exam: Present: soft, tenderness, normal bowel sounds, hernia (ventral wall hernia) Rectal exam: Present: normal inspection, normal rectal tone Extremities exam: Present: normal inspection, full ROM, normal capillary refill, other (Purple hue contusion to right proximal medial thigh extending to right suprapubic region. There is no bulging, swelling or pulsatile lesion noted.). Absent: tenderness, pedal edema, joint swelling, calf tenderness Neurological exam: Present: alert, oriented X3, CN II-XII intact Skin exam: Present: warm, dry, intact, normal color. Absent: rash Course Vital Signs 03/30/25 03/30/25 12:45 15:57 Temperature 98.0 F Pulse Rate 102 H 87 Respiratory 18 16 Rate Blood Pressure 125/74 114/68 O2 Sat by Pulse 98 97 Oximetry - Reevaluation(s) Reevaluation #1: 03/30/25 15:03 Rectal exam performed and chaperoned by TONYA Benedict. There is no gross hematuria, anal fissures or hemorrhoids noted. Medical Decision Making - Medical Decision Making Was pt. sent in by a medical professional or institution ([facility], [facility], urgent care, hospital, or shelter...) When possible be specific @ -No Did you speak to anyone other than the patient for history (EMS, parent, family, police, friend...)? What history was obtained from this source @ -Family, at bedside, aiding in HPI and PMHx. Did you review nursing and triage notes (agree or disagree)? Why? @ -I reviewed and agree with nursing and triage notes Were old charts reviewed (outside hosp., previous admission, EMS record, old EKG, old radiological studies, urgent care reports/EKG's, shelter records)? Report findings @ -No old charts were reviewed Differential Diagnosis (chest pain, altered mental status, abdominal pain women, abdominal pain men, vaginal bleeding, weakness, fever, dyspnea, syncope, headache, dizziness, GI bleed, back pain, seizure, CVA, palpatations, mental health, musculoskeletal)? @ -Nephrolithiasis, malignancy, UTI, hemorrhoid... This list is not meant to be all-inclusive EKG interpreted by me (3pts min.). @ -None done X-rays interpreted by me (1pt min.). @ -None done CT interpreted by me (1pt min.). @ -CT ab pelvis showing overall significant progression of disease with multiple new and enlarging bipolar hepatic metastasis and multiple new bilateral lower lung pulmonary nodules. Increasing splenomegaly with evidence of portal hypertension. Development of small volume ascites throughout the abdomen pelvis. Increasing size of multiple ventral hernias containing ascites with largest at the epigastric region. Bilateral inguinal hernias with right containing ascites. U/S interpreted by me (1pt. min.). @ -None done What testing was considered but not performed or refused? (CT, X-rays, U/S, labs)? Why? @ -None What meds were considered but not given or refused? Why? @ -None Did you discuss the management of the patient with other professionals (denzel keith i.e. , PA, [facility], lab, RT, psych nurse, social studies teacher, lead supply worker, teacher, wildlife officer, case reviewer)? Give summary @ -No Was smoking cessation discussed for >3mins.? @ -No Was critical care preformed (if so, how long)? @ -No Were there social determinants of health that impacted care today? How? (Homelessness, low income, unemployed, alcoholism, drug addiction, transportation, low edu. Level, literacy, decrease access to med. care, correction, rehab)? @ -No Was there de-escalation of care discussed even if they declined (Discuss DNR or withdrawal of care, Hospice)? DNR status @ -No What co-morbidities impacted this encounter? (DM, HTN, Smoking, COPD, CAD, Cancer, CVA, ARF, Chemo, Hep., AIDS, mental health diagnosis, sleep apnea, morbid obesity)? @ -Stage IV colon cancer with metastasis currently on chemotherapy, History of bowel resection Was patient admitted / discharged? Hospital course, mention meds given and route, prescriptions, significant lab abnormalities, going to OR and other pertinent info. @ -Discharged. 54-year-old male presented the ER for evaluation of hematuria. Upon arrival patient mildly tachycardic at 102 bpm vitals otherwise stable. Laboratory studies remarkable for WBC 3.6, hemoglobin 9.4. total bilirubin 2.1, AST 66, alk phos 296. Urinalysis unremarkable with no RBCs or blood. Postvoid bladder scan 11-30ml. Given patient's history with negative UA for hematuria stool occult was performed and also negative. Rectal exam unremarkable, chaperoned by Marichuy CASTANEDA. CT abdomen pelvis showing overall significant pro gression of disease. There is no evidence of hydronephrosis or left renal calculi. Punctate nonobstructing right renal calculus. Kidneys enhance symmetrically. Patient provided with IV fluids in the emergency department. Upon reevaluation, patient resting comfortably on stretcher no signs of acute distress. Patient educated on today's findings, all questions answered. Admission was offered to patient for oncology consultation patient refused stating he has appointment with [facility] oncology in 2 days for further evaluation. [facility] As patient has remained stable with ability to follow-up outpatient he will be discharged in stable condition advised follow-up with oncology and PCP. Strict return parameters discussed. Patient verbally expressed understanding and agreement with care plan. Case discussed with ED attending, Dr. Win. Undiagnosed new problem with uncertain prognosis? @ -No Drug Therapy requiring intensive monitoring for toxicity (Heparin, Nitro, Insulin, Cardizem)? @ -No Were any procedures done? @ -No Diagnosis/symptom? @ -Subjective hematuria/ nonobstructing right renal calculi/ventral her natalia/inguinal hernia Acute, or Chronic, or Acute on Chronic? @ -Acute/chronic/chronic/chronic Uncomplicated (without systemic symptoms) or Complicated (systemic symptoms)? @ -Uncomplicated Side effects of treatment? @ -No Exacerbation, Progression, or Severe Exacerbation? @ -No Poses a threat to life or bodily function? How? (Chest pain, USA, IA, pneumonia, PE, COPD, DKA, ARF, appy, cholecystitis, CVA, Diverticulitis, Homicidal, Suicidal, threat to staff... and all critical care pts) @ -Malignancy - Lab Data Result diagrams: 03/30/25 13:19 03/30/25 13:19 Lab Results 03/30/25 03/30/25 03/30/25 Range/Units 12:17 13:15 13:19 WBC 3.66 L (4.50-10.00) 10*3/uL RBC 3.17 L (4.40-5.60) 10*6/uL Hgb 9.4 L (13.0-17.0) g/dL Hct 27.7 L (39.6-50.0) % MCV 87.4 (80.0-97.0) fL MCH 29.7 (27.0-32.0) pg MCHC 33.9 (32.0-37.0) g/dL Plt Count 113 L (140-440) 10*3/uL MPV 8.9 L (9.5-12.2) fL Immature Gran % (Auto) 0.5 % Neutrophils % 64.5 % Lymphocytes % 16.4 % Monocytes % 17.2 % Eosinophils % 1.1 % Basophils % 0.3 % Immature Gran # 0.02 (0.00-0.04) 10*3/uL Neutrophils # 2.36 (1.80-7.70) 10*3/uL Lymphocytes # 0.60 L (0.90-5.00) 10*3/uL Monocytes # 0.63 (0.20-1.00) 10*3/uL Eosinophils # 0.04 (0.04-0.35) 10*3/uL Basophils # 0.01 (0.00-0.10) 10*3/uL Sodium (137-145) mmol/L Potassium (3.5-5.1) mmol/L Chloride (98-107) mmol/L Carbon Dioxide (22-30) mmol/L Anion Gap mmol/L BUN (9-20) mg/dL Creatinine (0.66-1.25) mg/dL Est GFR (CKD-EPI)AfAm (>60 ml/min/1.73 sqM) Est GFR (CKD-EPI)NonAf (>60 ml/min/1.73 sqM) Glucose (74-99) mg/dL Plasma Lactic Acid Humberto (0.7-2.0) mmol/L Calcium (8.4-10.2) mg/dL Total Bilirubin (0.2-1.3) mg/dL AST (17-59) U/L ALT (4-49) U/L Alkaline Phosphatase (38-126) U/L Total Protein (6.3-8.2) g/dL Albumin (3.5-5.0) g/dL Urine Color Urine Appearance (Clear) Urine pH (5.0-8.0) Ur Specific Dyke (1.001-1.035) Urine Protein (Negative) Urine Glucose (UA) (Negative) Urine Ketones (Negative) Urine Blood (Negative) Urine Nitrite (Negative) Urine Bilirubin (Negative) Urine Urobilinogen (<2.0) mg/dL Ur Leukocyte Esterase (Negative) Stool Occult Blood (Negative) Blood Type B Positive Blood Type Confirm Blood Type Recheck No Previous Record Bld Type Recheck Status CABO Indicated Antibody Screen NEGATIVE Spec Expiration Date 04/02/2025231603/30/25 03/30/25 03/30/25 Range/Units 13:19 13:19 13:46 WBC (4.50-10.00) 10*3/uL RBC (4.40-5.60) 10*6/uL Hgb (13.0-17.0) g/dL Hct (39.6-50.0) % MCV (80.0-97.0) fL MCH (27.0-32.0) pg MCHC (32.0-37.0) g/dL Plt Count (140-440) 10*3/uL MPV (9.5-12.2) fL Immature Gran % (Auto) % Neutrophils % % Lymphocytes % % Monocytes % % Eosinophils % % Basophils % % Immature Gran # (0.00-0.04) 10*3/uL Neutrophils # (1.80-7.70) 10*3/uL Lymphocytes # (0.90-5.00) 10*3/uL Monocytes # (0.20-1.00) 10*3/uL Eosinophils # (0.04-0.35) 10*3/uL Basophils # (0.00-0.10) 10*3/uL Sodium 137 (137-145) mmol/L Potassium 4.3 (3.5-5.1) mmol/L Chloride 104 (98-107) mmol/L Carbon Dioxide 21 L (22-30) mmol/L Anion Gap 12 mmol/L BUN 9 (9-20) mg/dL Creatinine 0.43 L (0.66-1.25) mg/dL Est GFR (CKD-EPI)AfAm >90 (>60 ml/min/1.73 sqM) Est GFR (CKD-EPI)NonAf >90 (>60 ml/min/1.73 sqM) Glucose 88 (74-99) mg/dL Plasma Lactic Acid Humberto 1.7 (0.7-2.0) mmol/L Calcium 8.8 (8.4-10.2) mg/dL Total Bilirubin 2.1 H (0.2-1.3) mg/dL AST 66 H (17-59) U/L ALT 16 (4-49) U/L Alkaline Phosphatase 296 H (38-126) U/L Total Protein 6.5 (6.3-8.2) g/dL Albumin 3.5 (3.5-5.0) g/dL Urine Color Urine Appearance (Clear) Urine pH (5.0-8.0) Ur Specific Dyke (1.001-1.035) Urine Protein (Negative) Urine Glucose (UA) (Negative) Urine Ketones (Negative) Urine Blood (Negative) Urine Nitrite (Negative) Urine Bilirubin (Negative) Urine Urobilinogen (<2.0) mg/dL Ur Leukocyte Esterase (Negative) Stool Occult Blood (Negative) Blood Type Blood Type Confirm B Positive Blood Type Recheck Bld Type Recheck Status Antibody Screen Spec Expiration Date 03/30/25 03/30/25 Range/Units 14:19 15:00 WBC (4.50-10.00) 10*3/uL RBC (4.40-5.60) 10*6/uL Hgb (13.0-17.0) g/dL Hct (39.6-50.0) % MCV (80.0-97.0) fL MCH (27.0-32.0) pg MCHC (32.0-37.0) g/dL Plt Count (140-440) 10*3/uL MPV (9.5-12.2) fL Immature Gran % (Auto) % Neutrophils % % Lymphocytes % % Monocytes % % Eosinophils % % Basophils % % Immature Gran # (0.00-0.04) 10*3/uL Neutrophils # (1.80-7.70) 10*3/uL Lymphocytes # (0.90-5.00) 10*3/uL Monocytes # (0.20-1.00) 10*3/uL Eosinophils # (0.04-0.35) 10*3/uL Basophils # (0.00-0.10) 10*3/uL Sodium (137-145) mmol/L Potassium (3.5-5.1) mmol/L Chloride (98-107) mmol/L Carbon Dioxide (22-30) mmol/L Anion Gap mmol/L BUN (9-20) mg/dL Creatinine (0.66-1.25) mg/dL Est GFR (CKD-EPI)AfAm (>60 ml/min/1.73 sqM) Est GFR (CKD-EPI)NonAf (>60 ml/min/1.73 sqM) Glucose (74-99) mg/dL Plasma Lactic Acid Humberto (0.7-2.0) mmol/L Calcium (8.4-10.2) mg/dL Total Bilirubin (0.2-1.3) mg/dL AST (17-59) U/L ALT (4-49) U/L Alkaline Phosphatase (38-126) U/L Total Protein (6.3-8.2) g/dL Albumin (3.5-5.0) g/dL Urine Color Yellow Urine Appearance Clear (Clear) Urine pH 6.5 (5.0-8.0) Ur Specific Dyke 1.017 (1.001-1.035) Urine Protein Negative (Negative) Urine Glucose (UA) Negative (Negative) Urine Ketones Negative (Negative) Urine Blood Negative (Negative) Urine Nitrite Negative (Negative) Urine Bilirubin Negative (Negative) Urine Urobilinogen 3.0 (<2.0) mg/dL Ur Leukocyte Esterase Negative (Negative) Stool Occult Blood Negative (Negative) Blood Type Blood Type Confirm Blood Type Recheck Bld Type Recheck Status Antibody Screen Spec Expiration Date - Radiology Data Radiology results: report reviewed, image reviewed Disposition Clinical Impression: Hematuria Disposition: HOME SELF-CARE Condition: Stable Instructions (If sedation given, give patient instructions): Hematuria (ED) Additional Instructions: Follow-up closely with Dr. Garcia and specialist at [facility]. Return to the ER for any new or worsening concerns. Is patient prescribed a controlled substance at d/c from ED?: No Referrals: None,Stated [Primary Care Provider] - 1-2 days Avi Garcia [STAFF PHYSICIAN] - 1-2 days Time of Disposition: 15:51
[2025-03-30] MEDS: SODIUM CHLORIDE 0.9% 1,000 ML IV ONE (13:24)
[2025-03-30 13:34] LABS: Basophils # (A) 0.01 10*3/uL (0.00-0.10); Basophils % (A) 0.3 %; Eosinophils # (A) 0.04 10*3/uL (0.04-0.35); Eosinophils % (A) 1.1 %; HCT 27.7 % (39.6-50.0); HGB 9.4 g/dL (13.0-17.0); Lymphocytes # (A) 0.60 10*3/uL (0.90-5.00); Lymphocytes % (A) 16.4 %; MCH 29.7 pg (27.0-32.0); MCHC 33.9 g/dL (32.0-37.0); MCV 87.4 fL (80.0-97.0); Monocytes # (A) 0.63 10*3/uL (0.20-1.00); Monocytes % (A) 17.2 %; Neutrophils # (A) 2.36 10*3/uL (1.80-7.70); Neutrophils % (A) 64.5 %; Platelet Count 113 10*3/uL (140-440); RBC 3.17 10*6/uL (4.40-5.60); RDW 14.8 % (11.5-14.5); WBC 3.66 10*3/uL (4.50-10.00)
[2025-03-30 13:51] LABS: ALT 16 U/L (4-49); AST 66 U/L (17-59); African American GFR (CKD) >90 (>60 ml/min/1.73 sqM); Albumin 3.5 g/dL (3.5-5.0); Alkaline Phosphatase 296 U/L (38-126); Anion Gap 12 mmol/L; Blood Urea Nitrogen 9 mg/dL (9-20); Calcium 8.8 mg/dL (8.4-10.2); Carbon Dioxide 21 mmol/L (22-30); Chloride 104 mmol/L (98-107); Glucose 88 mg/dL (74-99); Non-African American GFR(CKD) >90 (>60 ml/min/1.73 sqM); Potassium 4.3 mmol/L (3.5-5.1); Sodium 137 mmol/L (137-145); Total Protein 6.5 g/dL (6.3-8.2)
[2025-03-30 14:46] LABS: Bilirubin,Urine Negative (Negative); Blood,Urine Negative (Negative); Color,Urine Yellow; Glucose,Urine (UA) Negative (Negative); Ketones,Urine Negative (Negative); Leukocyte Esterase,Urine Negative (Negative); Nitrite,Urine Negative (Negative); PH, Urine 6.5 (5.0-8.0); Protein,Urine Negative (Negative); Specific Gravity,Urine 1.017 (1.001-1.035); Urobilinogen,Urine 3.0 mg/dL (<2.0)
--- NOTE | 2025-03-30 15:33 | CT ---
EXAMINATION TYPE: CT abdomen pelvis w con CT DLP: 1003.2 mGycm, Automated exposure control for dose reduction was used. DATE OF EXAM: 03/30/2025 3:21 PM COMPARISON: Multiple CT abdomen pelvis with most recent 11/20/2024, multiple CT chest and pelvis with most recent 01/28/2024 CLINICAL INDICATION:Male, 54 years old with history of hx bowel resection and colon cancer-rectal/hem atur; HEMATAURIA, HX OF BOWEL RESECTION AND STAGE 4 COLON CA TECHNIQUE: Standard CT of the abdomen and pelvis following the administration of 100 cc of Isovue 3 00 IV contrast material. Coronal and sagittal reformats were performed. FINDINGS: LOWER CHEST: Development of multiple partially visualized bilateral lower lung solid pulmonary nodule s. Examples including lingular 1.4 cm nodule (series 201, image 1) and a left lower lobe 1.4 cm pulmo nary nodule (series 204, image 4). Elevation of the right hemidiaphragm. ABDOMEN LIVER: Significant progression of bilobar hepatic metastasis with new and enlarging hypodense lesions . The lesions measure up to 6 cm. There is redemonstration of several calcified lesions within the ri ght hepatic lobe. The liver is enlarged measuring at least 21.2 cm in cc dimension. GALLBLADDER AND BILE DUCTS: The gallbladder is surgically absent. No biliary ductal dilatation. PANCREAS: Unremarkable. SPLEEN: Increased size of splenomegaly measuring 22.9 cm in CC dimension, previously 19.5 cm. ADRENAL GLANDS: Unremarkable. KIDNEYS AND URETERS: No evidence of hydronephrosis . No left renal calculi. Punctate nonobstructing r ight renal calculus. The kidneys enhance symmetrically. Contrast is demonstrated within both collecti ng systems on a delayed phase. PELVIS BLADDER: Unremarkable REPRODUCTIVE: Prominent in size. ABDOMEN & PELVIS STOMACH AND BOWEL: Small hiatal hernia. The gastric antrum abuts a left hepatic lobe mass with loss o f fat plane. Cannot exclude invasion.Postsurgical changes with anastomosis in the left mid abdomen. M oderate colonic stool burden. No evidence of bowel obstruction. PERITONEUM: No evidence of pneumoperitoneum. Small amount ascites throughout the abdomen and pelvis. VASCULATURE: No evidence of aortic aneurysm. The portal venous system is patent with a dilated appear ance of the splenic vein with collateral vessels in the left upper quadrant and extending into the re troperitoneal region. Few pelvic phleboliths. MUSCULOSKELETAL: No acute osseous abnormalities. No aggressive osseous lesion. Degenerative disc dise ase L4-L5. LYMPH NODES: No evidence for lymphadenopathy. SOFT TISSUE/ABDOMINAL WALL: Increasing size of ventral wall hernia with defect measuring 1.2 cm. This is fluid-filled and measures up to 8.6 cm in diameter. Previously measures 6.1 cm in diameter. Small periumbilical fluid containing hernia is identified. Fat filled small left inguinal hernia with larg er right inguinal hernia containing fat and fluid. IMPRESSION: 1. Overall significant progression of disease with multiple new and enlarging bilobar hepatic metast asis and multiple new bilateral lower lung pulmonary nodules. 2. Increased splenomegaly with evidence of portal hypertension. Development of small volume ascites t hroughout the abdomen pelvis. 3. Increasing size of multiple ventral wall hernias containing ascites with largest in the epigastric region. Additional bilateral inguinal hernias with the right containing ascites. [facility], , 03/30/2025 3:30 PM
[2025-03-30 15:58] VITALS: BP 114/68; PULSE 87; RESP 16
== END 2025-03-30 16:35 | disposition home or self-care (01) ==
LOC: EC 12:34
DX: R31.9 Hematuria, unspecified (principal); C18.9 Malignant neoplasm of colon, unspecified; Z88.5 Allergy status to narcotic agent
CPT/HCPCS: 51798; 36415; 86900; 86901; 80053; 83605; 85025; 86850; 82272; 81003; 74177; 99284; 96360; Q9967